=== PATIENT | male | born 1970 | race Caucasian/White ===

== ENCOUNTER 2020-04-04 06:44 | Day surgery (SDC) | payer OTHER ==
[2020-03-29 09:52] LABS: BASOPHILS % (AUTO) 0.3 % (0-1); EOSINOPHILS # (AUTO) 0.1 X10'3 (0-0.9); LYMPHOCYTES % (AUTO) 25.1 % (21-51); MEAN CORPUSCULAR HEMOGLOBIN 32.6 PG (27.0-31.0); MEAN CORPUSCULAR HGB CONC 34.8 g/dL (33.0-36.5); MEAN CORPUSCULAR VOLUME 93.8 FL (78-98); MEAN PLATELET VOLUME 7.7 FL (7.4-10.4); MONOCYTES # (AUTO) 0.5 X10'3 (0-0.9); MONOCYTES % (AUTO) 10.9 % (2-12); NEUTROPHILS # (AUTO) 2.6 X10'3 (1.8-7.7); NEUTROPHILS % (AUTO) 61.7 % (42-75); PRE OP HEMATOCRIT 45.7 % (42.0-52.0); PRE OP HEMOGLOBIN 15.9 g/dL (14.0-17.9); PRE OP PLATELET COUNT 192 X10'3 (140-440); RED BLOOD COUNT 4.87 X10'6 (4.70-6.10); RED CELL DISTRIBUTION WIDTH 13.1 % (11.5-14.5)
[2020-03-29 10:55] LABS: ALBUMIN 3.9 G/DL (3.4-5.0); ALBUMIN/GLOBULIN RATIO 1.3 (1.1-1.5); ALKALINE PHOSPHATASE 43 IU/L (46-116); BLOOD UREA NITROGEN 16 MG/DL (7-18); BUN/CREATININE RATIO 15.2 (5.4-32.0); CALCIUM 8.9 MG/DL (8.5-10.1); CHLORIDE 107 MMOL/L (99-107); CREATININE 1.05 MG/DL (0.60-1.10); PRE OP ALT 32 U/L (30-65); PRE OP ANION GAP 8 (8-16); PRE OP AST 23 U/L (10-37); PRE OP BILIRUB, TOTAL 0.7 MG/DL (0.0-1.0); PRE OP GLUCOSE 97 MG/DL (70-104); PRE OP SODIUM 142 MMOL/L (135-145); TOTAL CARBON DIOXIDE 26.6 MMOL/L (24-32); TOTAL PROTEIN 6.9 G/DL (6.4-8.2); eGFR 74 ML/MIN
[~2020-04-04] VITALS: Ht 175.3 cm; Wt 94.3 kg
[2020-04-04] VITALS (7 sets, daily range): BP systolic 103–168; BP diastolic 65–100
[~2020-04-04 06:44] MED LIST: ATOR10TA11 PO; LISI10TA4 PO; cefazolin/dext.iso 2gm/100ml 100 ML IV ONE; famotidine 20mg tablet PO ONE; ringers solution, lacted 1,000 ML IV SCH
[2020-04-04] MEDS ORDERED: ringers solution, lacted 1,000 ML IV SCH (07:22)
[2020-04-04] MEDS ORDERED: fentaNYL/PF 50MCG/1 ML 2ML syringe IV PRN ×2 (07:25)
[2020-04-04] MEDS ORDERED: ondansetron/PF 4mg/2ml inj IV PRN (07:25)
[2020-04-04] MEDS ORDERED: hydrALAZINE 20mg/ml inj. IV PRN (07:25)
[2020-04-04] MEDS ORDERED: morphine 2 MG/ML inj. syringe IV PRN (07:25)
[2020-04-04] MEDS ORDERED: morphine 4 MG/ML inj SYRINge IV PRN (07:25)
[2020-04-04] MEDS ORDERED: labetalol 20mg/4ml (5mg/ml) syringe IV PRN (07:25)
[2020-04-04] MEDS ORDERED: LIDOcaine 2% (20mg/ml) 5ml vial ONE (07:33)
[2020-04-04] MEDS ORDERED: propofol inj 20 ML IV ONE (07:33)
[2020-04-04] MEDS ORDERED: dexamethasone sod phosphate 4mg/ml inj. ONE (07:34)
[2020-04-04] MEDS ORDERED: ondansetron/PF 4mg/2ml inj ONE (07:34)
[2020-04-04] MEDS ORDERED: glycopyrrolate 0.2mg/ml inj ONE (07:34)
[2020-04-04] MEDS ORDERED: neostigmine methylsulfate 1 MG/ML 10ml vial ONE (07:34)
[2020-04-04] MEDS ORDERED: rocuronium 10mg/ml inj IV ONE (07:34)
[2020-04-04] MEDS ORDERED: BUPIVAcaine/PF 2.5 mg/ml (0.25%) 30ml vial ONE (08:37)
[2020-04-04] MEDS ORDERED: LIDOcaine 1% 30ml preserv. free vial ONE (08:37)
[2020-04-04] MEDS ORDERED: sevoflurane 250ml liquid IH ONE (08:57)
[2020-04-04] MEDS ORDERED: fentaNYL/PF 50MCG/1 ML 2ML syringe ONE ×2 (09:02→09:04)
[2020-04-04] MEDS ORDERED: midazolam 2 mg/2 ml injection ONE (09:04)
[2020-04-04] MEDS ORDERED: HYDROcodone/acetaminophen 5mg/325mg tablet PO PRN (10:00)
--- NOTE | 2020-04-04 11:05 | NUR ---
AWAKE AND ORIENTED VITALS STABLE. DRESSING DI. JOHN PAIN. HOME WITH HIS AT THIS TIME.
== END 2020-04-04 11:05 | disposition home or self-care (01) ==
LOC: PAS 06:44
PROVIDERS: ATTEND Surgery
DX: K42.0 Umbilical hernia with obstruction, without gangrene (principal); I10 Essential (primary) hypertension; Z98.890 Other specified postprocedural states; Z79.899 Other long term (current) drug therapy; Z11.59 Encounter for screening for other viral diseases
CPT/HCPCS: 36415; 49587; 80053; 82948; 85025; 87635; 93005; J1100; J2001; J2250; J2405; J2704; J2710; J3010; J3490; J7120; A4618; A7000